=== PATIENT | male | born 1940 | race Caucasian/White ===

== ENCOUNTER 2023-04-24 08:00 | Outpatient (CLI) | payer MEDICARE, BC ==
[2023-04-24 16:39] LABS: BASOPHILS % (AUTO) 0.7 % (0.0-2.0); EOSINOPHILS % (AUTO) 1.6 % (0.0-6.0); HEMATOCRIT 36 % (39-51); HEMOGLOBIN 11.5 g/dL (13.5-17.5); LYMPHOCYTES # (AUTO) 1.3 K/uL (0.8-4.8); LYMPHOCYTES % (AUTO) 29.5 % (20.0-44.0); MEAN CORPUSCULAR HGB CONC 32 g/dl (31.0-36.0); MEAN CORPUSCULAR VOLUME 102 fL (80-96); MONOCYTES # (AUTO) 0.7 K/uL (0.1-1.30); MONOCYTES % (AUTO) 15.8 % (2.0-12.0); NEUTROPHILS # (AUTO) 2.3 K/uL (1.8-8.9); NEUTROPHILS % (AUTO) 52.4 % (43.0-81.0); RED BLOOD CELL COUNT(AUTO) 3.56 MIL/uL (4.5-6.0); WHITE BLOOD COUNT (AUTO) 4.3 K/uL (4.3-11.0)
[2023-04-24 17:15] LABS: CALCIUM, SERUM 8.7 mg/dL (8.5-10.1); CREATININE 1.2 mg/dL (0.6-1.3)
[2023-04-24 17:19] LABS: BILIRUBIN,URINE NEGATIVE (NEGATIVE); COLOR,URINE YELLOW (YELLOW); LEUKOCYTE ESTERASE ,URINE NEGATIVE (NEGATIVE); NITRITE, URINE NEGATIVE (NEGATIVE); PROTEIN,URINE NEGATIVE (NEGATIVE); UGLUCOSE NEGATIVE (NEGATIVE); UROBILINOGEN,URINE 0.2 EU/dL (0.2)
[2023-04-24 17:29] LABS: PLATELET COUNT (AUTO) 31 K/uL (150-450)
[2023-04-24 18:07] LABS: EOSINOPHILS % (MANUAL) 1 % (0-4); LYMPHOCYTES % (MANUAL) 35 % (16-48); MONOCYTES % (MANUAL) 13 % (0-11.0); NEUTROPHILS % (MANUAL) 51 (42-76)
== END 2023-04-24 23:59 | disposition home or self-care (01) ==
LOC: LAB 08:00
PROVIDERS: ATTEND Internal Medicine Pulmonary Disease
DX: Z01.818 Encounter for other preprocedural examination (principal); I49.3 Ventricular premature depolarization
CPT/HCPCS: 36415; 71045-TC; 80048-TC; 85025-TC; 85730-TC

== ENCOUNTER 2023-04-26 09:18 | Outpatient (CLI) | payer MEDICARE, BC ==
[2023-04-26 11:50] LABS: BASOPHILS % (AUTO) 0.6 % (0.0-2.0); EOSINOPHILS % (AUTO) 1.2 % (0.0-6.0); HEMATOCRIT 34 % (39-51); HEMOGLOBIN 11.1 g/dL (13.5-17.5); LYMPHOCYTES # (AUTO) 1.1 K/uL (0.8-4.8); LYMPHOCYTES % (AUTO) 23.5 % (20.0-44.0); MEAN CORPUSCULAR HGB CONC 33 g/dl (31.0-36.0); MEAN CORPUSCULAR VOLUME 98 fL (80-96); MONOCYTES # (AUTO) 0.6 K/uL (0.1-1.30); MONOCYTES % (AUTO) 13.7 % (2.0-12.0); NEUTROPHILS # (AUTO) 2.9 K/uL (1.8-8.9); PLATELET COUNT (AUTO) 157 K/uL (150-450); RED BLOOD CELL COUNT(AUTO) 3.49 MIL/uL (4.5-6.0); WHITE BLOOD COUNT (AUTO) 4.7 K/uL (4.3-11.0)
[2023-05-04] MEDS ORDERED: HYDR-3972 PO (09:35)
== END 2023-04-26 23:59 | disposition home or self-care (01) ==
LOC: LAB 09:18
PROVIDERS: ATTEND Dentist Oral and Maxillofacial Surgery
DX: Z01.812 Encounter for preprocedural laboratory examination (principal); I10 Essential (primary) hypertension
CPT/HCPCS: 36415; 85025-TC

== ENCOUNTER 2023-04-30 11:18 | Outpatient (CLI) | payer MEDICARE, BC | END 2023-04-30 23:59 | disposition home or self-care (01) | LOC: LAB 11:18 | PROVIDERS: ATTEND Internal Medicine Pulmonary Disease | DX: Z75.3 Unavailability and inaccessibility of health-care facilities (principal) ==

== ENCOUNTER 2023-05-03 08:25 | Inpatient (IN) | payer MEDICARE, BC ==
[~2023-05-03] VITALS: Ht 177.8 cm; Wt 124.7 kg
[2023-05-03] VITALS (11 sets, daily range): BP systolic 140–158; BP diastolic 65–95
--- NOTE | 2023-05-03 09:58 | NUR ---
MS DAY SURGERY NOTES RECEIVED THIS 83 YO PATIENT AT THE MS UNIT AT AROUND 0835 ACCOMPANIED BY ADMITTING STAFF, AOX4, AMBULATORY, USES CANE, STABLE GAIT, BREATHING STABLE ON ROOM AIR WITHOUT ANY DIFFICULTY, PATIENT IS HAVING RESECT NEOPLASMS AND OSTEOMYELITIS, MAXILLARY AND MANDIBLE BILATERAL OPEN REDUCTION INTERNAL FIXATION, PATHOLOGICAL FRACTURES WITH AUTOLOGOUS BONE, BILATERAL SINUSOTOMY BY DR GASTON LEAL. PATIENT SIGNED ALL SURGICAL CONSENTS BY HIMSELF, NPO SINCE YESTERDAY 05/02/2023, DENIED PAIN NOR DISCOMFORT AT THE MOMENT. ORIENTED TO STAFF AND ROOM. SKIN IS INTACT. IV ACCESS STARTED ON RIGHT HAND G#22, SALINE LOCKED, PATENT AND FLUSHING WELL. PRE-OP CHECKLIST DONE, BELONGINGS ARE WITH THE PATIENT. VITAL SIGNS TAKEN AND RECORDED. SAFETY MEASURES IN PLACE: BED IN LOWEST AND LOCKED POSITION, CALL LIGHT AND TRAY TABLE WITHIN EASY REACH. PATIENT WAS PICKED UP BY 2 OR STAFF AT AROUND 0955. WILL CONTINUE TO MONITOR.
[2023-05-03] MEDS ORDERED: LIDOCAINE 2%-EPI 1:100,000 30 ML VIAL ONE (10:17)
[2023-05-03] MEDS ORDERED: VANCOMYCIN 1 GM VIAL ONE (10:18)
[2023-05-03] MEDS ORDERED: DEXAMETHASONE SOD PHOSPHATE 10 MG/ML VIAL ONE (10:18)
[2023-05-03] MEDS ORDERED: MIDAZOLAM HCL 2 MG/2ML VIAL ONE (10:23)
[2023-05-03] MEDS ORDERED: FENTANYL PF 100MCG/2ML AMPUL ONE (10:23)
[2023-05-03] MEDS ORDERED: SEVOFLURANE 250 ML BOTTLE IH ONE (10:23)
[2023-05-03] MEDS ORDERED: ROCURONIUM BROMIDE 50 MG/5 ML ONE (10:24)
[2023-05-03] MEDS ORDERED: Magnesium 1 GM/2 ML VIAL ONE (10:24)
[2023-05-03] MEDS ORDERED: OXYMETAZOLINE HCL NASAL SPRAY 30 ML BOTTLE NS ONE (10:24)
[2023-05-03] MEDS ORDERED: FAMOTIDINE/PF INJ 20 MG/2 ML VIAL IV ONE (10:24)
--- NOTE | 2023-05-03 10:27 | NUR ---
RN NOTES - PACU NURSE SUE CAME BACK FOR PT'S CPAP MACHINE
--- NOTE | 2023-05-03 13:35 | NUR ---
RN NOTES PATIENT IS BACK FROM OR TO HIS ROOM AT 1328, VITAL SIGNS TAKEN AND RECORDED, STABLE.
--- NOTE | 2023-05-03 14:00 | NUR ---
MS RN NOTES PATIENT CAME BACK FROM PACU VIA HIS OWN BED ACCOMPANIED BY 2 NURSES, PATIENT IS AOX4, CALM, COOPERATIVE, DENIED PAIN NOR DISCOMFORT, S/P RESECTION OR NEOPLASMS, OSTEOMYELITIS, BONE CYSTS, MAXILLA, MANDIBLE, BILATERAL ORIF, MAXILLA AND MANDIBLE AUTOLOGOUS BONE GRAFTING BY DR LEAL. INSPECTED THE ORAL CAVITY AND NO SIGNS OF BLEEDING NOTED. PATIENT IS BREATHING WITHOUT DIFFICULTY ON ROOM AIR. IV ACCESS ON RIGHT HAND G#22 WITH NS RUNNING. RECEIVED POST-OP ORDERS AND ENTERED, MRSA COLLECTED, ICE CHIPS PROVIDED, PATIENT TOLERATED, SEEN BY ADMITTING HOSPITALIST. PATIENT IS ORIENTED TO ROOM AND STAFF, SAFETY MEASURES IN PLACE: BED IN LOWEST AND LOCKED POSITION, CALL LIGHT AND TRAY TABLE WITHIN EASY REACH, SIDE RAILS UP 2X. WILL CONTINUE TO MONITOR.
[2023-05-03] MEDS ORDERED: IV NS 0.9% 1,000 ML IV PRN (14:30)
[2023-05-03] MEDS ORDERED: HYDROMORPHONE 1 MG/1 ML DISP.SYRIN IV PRN (15:30)
[2023-05-03] MEDS ORDERED: MAG HYDROX/AL HYDROX/SIMETH 30 ML UDC PO PRN (15:30)
[2023-05-03] MEDS ORDERED: ZOLPIDEM TARTRATE 5 MG TABLET PO PRN (15:30)
[2023-05-03] MEDS ORDERED: Z GUARD REMEDY 4 OZ OINT TP PRN (15:30)
[2023-05-03] MEDS ORDERED: ACETAMINOPHEN 325 MG TABLET PO PRN ×3 (15:30→17:00)
[2023-05-03] MEDS ORDERED: ONDANSETRON HCL/PF 4 MG/2 ML VIAL IVP PRN (15:30)
[2023-05-03] MEDS ORDERED: MAGNESIUM HYDROXIDE 30 ML UDC PO PRN (15:30)
[2023-05-03] MEDS ORDERED: ONDANSETRON HCL/PF 4 MG/2 ML VIAL IV PRN (15:30)
[2023-05-03] MEDS ORDERED: FINA5TAB11 PO (15:34)
[2023-05-03] MEDS ORDERED: MULT-447 PO (15:34)
[2023-05-03] MEDS ORDERED: DOCU-141 PO (15:34)
[2023-05-03] MEDS ORDERED: DOXA8TAB79 PO (15:34)
[2023-05-03] MEDS ORDERED: GABA-532 PO (15:34)
[2023-05-03] MEDS ORDERED: ASPI-1420 PO (15:34)
[2023-05-03] MEDS ORDERED: OMEP40CA21 PO (15:34)
[2023-05-03] MEDS ORDERED: LABE100T5 PO (15:34)
[2023-05-03] MEDS ORDERED: HYDR-4076 PO (15:34)
[2023-05-03] MEDS ORDERED: LOSA1TAB39 PO (15:34)
[2023-05-03] MEDS ORDERED: ACET-868 PO (15:34)
[2023-05-03] MEDS ORDERED: CHOL100043 PO (15:34)
[2023-05-03] MEDS ORDERED: ATOR10TA PO (15:34)
[2023-05-03] MEDS ORDERED: AMLO-212 PO (15:34)
[2023-05-03] MEDS: LABETALOL HCL (100MG) 100 MG TABLET PO SCH (17:38)
[2023-05-03] MEDS: GABAPENTIN 100 MG CAPSULE PO SCH (17:38)
[2023-05-03] MEDS: hydrALAZINE HCL 25 MG TABLET PO SCH (17:38)
--- NOTE | 2023-05-03 17:48 | NUR ---
RN NOTES- PATIENT HAS CPAP FROM HOME THAT HE USES AT NIGHT, CALLED RESPIRATORY TO HELP PATIENT SET IT UP.
--- NOTE | 2023-05-03 18:50 | NUR ---
MS RN CLOSING NOTES PT RESTING IN BED, AOX4, ON ROOM AIR BREATHING WITHOUT DIFFICULTY. DENIES PAIN NOR DISCOMFORT, NO BLEEDING NOTED. PATIENT WAS ABLE TO TOLERATE CLEAR LIQUIDS, NO N/V NOTED. IV ACCESS ON RIGHT HAND G#22 WITH STANDBY NS IVF, PATIENT ASKED TO DISCONNECT FOR NOW, WILL ENDORSE TO SUPERVISOR LEAD REFINERY NURSE. ALL NEEDS MET, ALL DUE MEDS GIVEN. SAFETY MEASURES MAINTAINED: BED IN LOWEST AND LOCKED POSITION, CALL LIGHT AND TRAY TABLE WITHIN EASY REACH, SIDE RAILS UP 2X. WILL ENDORSE TO SUPERVISOR LEAD REFINERY NURSE.
--- NOTE | 2023-05-03 19:39 | NUR ---
MS RN OPENING NOTE RECEIVED PT AWAKE IN BED. A/O X4 AND ABLE TO MAKE NEEDS KNOWN. PT STABLE ON ROOM AIR. NO SOB OR S/S OF RESPIRATORY DISTRESS. BREATHING EVEN AND UNLABORED. IV ACCESS R HAND 22G, INTACT AND PATENT, IVF ON STANDBY FOR NOW PER PT REQUEST. NO COMPLAINTS OF PAIN OR DISCOMFORT AT THIS TIME. SAFETY PRECAUTIONS IN PLACE. BED IN LOWEST LOCKED POSITION, HOB ELEVATED, SIDE RAILS UP X2, AND CALL LIGHT AND TABLE WITHIN REACH. ALL NEEDS MET AT THIS TIME.
[2023-05-04 05:53] LABS: BASOPHILS % (AUTO) 0.2 % (0.0-2.0); EOSINOPHILS % (AUTO) 0.1 % (0.0-6.0); HEMATOCRIT 32 % (39-51); HEMOGLOBIN 10.4 g/dL (13.5-17.5); LYMPHOCYTES # (AUTO) 0.5 K/uL (0.8-4.8); LYMPHOCYTES % (AUTO) 5.9 % (20.0-44.0); MEAN CORPUSCULAR HGB CONC 32 g/dl (31.0-36.0); MEAN CORPUSCULAR VOLUME 101 fL (80-96); MONOCYTES # (AUTO) 0.4 K/uL (0.1-1.30); NEUTROPHILS # (AUTO) 7.5 K/uL (1.8-8.9); NEUTROPHILS % (AUTO) 88.8 % (43.0-81.0); PLATELET COUNT (AUTO) 85 K/uL (150-450); RED BLOOD CELL COUNT(AUTO) 3.22 MIL/uL (4.5-6.0); WHITE BLOOD COUNT (AUTO) 8.4 K/uL (4.3-11.0)
[2023-05-04 06:13] LABS: CALCIUM, SERUM 8.7 mg/dL (8.5-10.1); CREATININE 1.1 mg/dL (0.6-1.3); MAGNESIUM 2.3 mg/dL (1.8-2.4); PHOSPHORUS 3.3 mg/dL (2.5-4.9); POTASSIUM 4.5 mmol/L (3.5-5.1)
--- NOTE | 2023-05-04 06:38 | NUR ---
MS RN CLOSING NOTE PT AWAKE IN BED. A/O X4 AND ABLE TO MAKE NEEDS KNOWN. PT STABLE ON ROOM AIR. NO SOB OR S/S OF RESPIRATORY DISTRESS. BREATHING EVEN AND UNLABORED. IV ACCESS R HAND 22G, INTACT AND PATENT, RUNNING NS @ 30 ML/HR. NO COMPLAINTS OF PAIN OR DISCOMFORT AT THIS TIME. NO S/S OF BLEEDING ALL SHIFT. ALL DUE MEDS GIVEN ORDERED. SAFETY PRECAUTIONS IN PLACE AT ALL TIMES. BED IN LOWEST LOCKED POSITION, HOB ELEVATED, SIDE RAILS UP X2, AND CALL LIGHT AND TABLE WITHIN REACH. ALL NEEDS MET AT THIS TIME AND WILL ENDORSE TO ONCOMING NURSE FOR EITAN.
[2023-05-04 07:00] VITALS: BP 156/67
[2023-05-04] MEDS ORDERED: PANTOPRAZOLE 40 MG TABLET.DR PO SCH (07:30)
--- NOTE | 2023-05-04 07:45 | NUR ---
MS RN OPENING NOTE RECEIVED PT AWAKE IN BED. A/O X4 AND ABLE TO MAKE NEEDS KNOWN. PT STABLE ON ROOM AIR. NO SOB OR S/S OF RESPIRATORY DISTRESS. WITH NONLABORED BREATHING. IV ACCESS R HAND 22G, INTACT AND PATENT, IVF ON STANDBY FOR NOW PER PT REQUEST. NO COMPLAINTS OF PAIN OR DISCOMFORT AT THIS TIME. SAFETY PRECAUTIONS MAINTAINED, WITH BED IN LOWEST LOCKED POSITION, HOB ELEVATED, SIDE RAILS UP X2, CALL LIGHT AND TABLE WITHIN EASY REACH. ALL NEEDS MET AT THIS TIME. WILL CONTINUE TO MONITOR AND ASSIST.
[2023-05-04] MEDS: GABAPENTIN 100 MG CAPSULE PO SCH (08:47)
[2023-05-04] MEDS: hydrALAZINE HCL 25 MG TABLET PO SCH (08:48)
[2023-05-04] MEDS ORDERED: AMLODIPINE BESYLATE 5 MG TABLET PO SCH (09:00)
[2023-05-04] MEDS ORDERED: FINASTERIDE (5 MG) 5 MG TABLET PO SCH (09:00)
[2023-05-04] MEDS ORDERED: Medication Not On Formulary EA (Losartan/Hydrochlorothiazide (Losartan-Hctz 100-25 Mg Ta PO SCH (09:00)
[2023-05-04] MEDS ORDERED: LOSARTAN POTASSIUM 50 MG TABLET PO SCH (09:00)
[2023-05-04] MEDS ORDERED: ASPIRIN EC 81 MG TABLET.DR PO SCH (09:00)
[2023-05-04] MEDS ORDERED: CHOLECALCIFEROL 1,000 UNIT TABLET (VIT D3) PO SCH (09:00)
[2023-05-04] MEDS ORDERED: DOCUSATE SODIUM 100 MG CAPSULE PO SCH (09:00)
[2023-05-04] MEDS ORDERED: ATORVASTATIN 10 MG TABLET PO SCH (09:00)
[2023-05-04] MEDS ORDERED: DOXAZOSIN MESYLATE (4 MG) 4 MG TABLET PO SCH (09:00)
[2023-05-04] MEDS ORDERED: HYDROCHLOROTHIAZIDE 25 MG TABLET PO SCH (09:00)
[2023-05-04] MEDS ORDERED: MULTIVIT W/MINERALS 1 TAB TABLET PO SCH (09:00)
[2023-05-04 09:08] LABS: LYMPHOCYTES % (MANUAL) 6 % (16-48); MONOCYTES % (MANUAL) 4 % (0-11.0); NEUTROPHILS % (MANUAL) 90 (42-76)
[2023-05-04] MEDS ORDERED: HYDR-3972 PO (09:35)
[2023-05-04 10:12] VITALS: BP 156/67
[2023-05-04] MEDS: LABETALOL HCL (100MG) 100 MG TABLET PO SCH (10:12)
--- NOTE | 2023-05-04 11:07 | NUR ---
RN NOTES: RECEIVED VERBAL ORDER FROM DR MEZA ADVANCE DIET TO SOFT. ORDER NOTED AND CARRIED OUT.
--- NOTE | 2023-05-04 12:10 | NUR ---
MS SOCIAL CONTACT WORKER NOTES RECEIVED ORDER FOR DISCHARGE GIVEN BY DR. MEZA, SEEN AND EXAMINED AT BEDSIDE, [facility]. PATIENT IS A/O X4, ABLE TO MAKE NEEDS KNOWN. STABLE ON ROOM AIR, NO SOB OR S/S OF DISTRESS NOTED. DISCHARGE INSTRUCTIONS GIVEN, PATIENT WAS INSTRUCTED TO FOLLOW UP WITH DR. LEAL NEXT WEEK. PATIENT VERBALIZED UNDERSTANDING. ALL BELONGINGS ACCOUNTED FOR, BELONGING SHEET SIGNED. PATIENT DENIES ANY PAIN OR DISCOMFORT AT THIS TIME. IV ACCESS REMOVED. EXITCARE FOLDER GIVEN TO PATIENT . PATIENT LEFT IN STABLE CONDITION WITH FRIEND VIA PRIVATE CAR.
== END 2023-05-04 14:27 | disposition home or self-care (01) | DRG 141 ==
LOC: EDBD → DS 08:25 → MED 08:26
PROVIDERS: ADMIT Dentist Oral and Maxillofacial Surgery; ATTEND Nurse Practitioner Acute Care
PROC: 0NSR0ZZ Reposition Maxilla, Open Approach (ICD-10-PCS; principal; 2023-05-03)
PROC: 09UQ07Z Supplement Right Maxillary Sinus with Autologous Tissue Substitute, Open Approach (ICD-10-PCS; 2023-05-03)
PROC: 09UR07Z Supplement Left Maxillary Sinus with Autologous Tissue Substitute, Open Approach (ICD-10-PCS; 2023-05-03)
PROC: 09BQ0ZX Excision of Right Maxillary Sinus, Open Approach, Diagnostic (ICD-10-PCS; 2023-05-03)
PROC: 0NBR0ZZ Excision of Maxilla, Open Approach (ICD-10-PCS; 2023-05-03)
PROC: 0NSV0ZZ Reposition Left Mandible, Open Approach (ICD-10-PCS; 2023-05-03)
PROC: 0NST0ZZ Reposition Right Mandible, Open Approach (ICD-10-PCS; 2023-05-03)
PROC: 0NUV07Z Supplement Left Mandible with Autologous Tissue Substitute, Open Approach (ICD-10-PCS; 2023-05-03)
PROC: 0NUT07Z Supplement Right Mandible with Autologous Tissue Substitute, Open Approach (ICD-10-PCS; 2023-05-03)
PROC: 0NBV0ZX Excision of Left Mandible, Open Approach, Diagnostic (ICD-10-PCS; 2023-05-03)
PROC: 0NBT0ZX Excision of Right Mandible, Open Approach, Diagnostic (ICD-10-PCS; 2023-05-03)
DX: M27.2 Inflammatory conditions of jaws (principal); M84.58XA Pathological fracture in neoplastic disease, other specified site, initial encounter for fracture; D49.2 Neoplasm of unspecified behavior of bone, soft tissue, and skin; J32.0 Chronic maxillary sinusitis; L92.9 Granulomatous disorder of the skin and subcutaneous tissue, unspecified; M27.40 Unspecified cyst of jaw; D16.4 Benign neoplasm of bones of skull and face; D16.5 Benign neoplasm of lower jaw bone; E78.5 Hyperlipidemia, unspecified; G47.33 Obstructive sleep apnea (adult) (pediatric); N40.0 Benign prostatic hyperplasia without lower urinary tract symptoms; I10 Essential (primary) hypertension; D64.9 Anemia, unspecified; D69.6 Thrombocytopenia, unspecified; E66.9 Obesity, unspecified; Z68.36 Body mass index [BMI] 36.0-36.9, adult; Z79.899 Other long term (current) drug therapy; Z79.82 Long term (current) use of aspirin
CPT/HCPCS: 36415; 80048-TC; 83735-TC; 84100-TC; 85025-TC; 87081-TC; A4223; G0378; J1100; J2250; J3010; J3370; J3475; J3490; J7030

== ENCOUNTER 2023-12-20 05:59 | Inpatient (IN) | payer MEDICARE, BC ==
[~2023-12-20] VITALS: Ht 177.8 cm; Wt 124.3 kg
[~2023-12-20 05:59] MED LIST: ACET-868 PO; AMLO-212 PO; ASPI-1420 PO; ATOR10TA PO; CHOL100043 PO; DOCU-141 PO; DOXA8TAB79 PO; FINA5TAB11 PO; GABA-532 PO; HYDR-3972 PO; HYDR-4076 PO; LABE100T5 PO; LOSA1TAB39 PO; MULT-447 PO; OMEP40CA21 PO
[2023-12-20] MEDS ORDERED: LIDOCAINE 2%-EPI 1:100,000 30 ML VIAL ONE (07:00)
[2023-12-20] MEDS ORDERED: dexaMETHasone SOD PHOSPHATE 2 ML ONE (07:00)
[2023-12-20] MEDS ORDERED: VANCOMYCIN 1 GM VIAL ONE (07:00)
[2023-12-20] MEDS ORDERED: ANESTHESIA TRAY IN PYXIS 1 EA TRAY MC ONE (07:03)
[2023-12-20] MEDS ORDERED: KETAMINE HCL (500MG/10ML) 50 MG/ML VIAL ONE (07:11)
[2023-12-20] MEDS ORDERED: FENTANYL PF 100MCG/2ML AMPUL ONE (07:11)
[2023-12-20] MEDS ORDERED: FAMOTIDINE/PF INJ 20 MG/2 ML VIAL IV ONE (07:11)
[2023-12-20] MEDS ORDERED: ROCURONIUM BROMIDE 50 MG/5 ML ONE (07:11)
[2023-12-20] MEDS ORDERED: OXYMETAZOLINE HCL NASAL SPRAY 30 ML BOTTLE NS ONE (07:11)
[2023-12-20] MEDS ORDERED: MIDAZOLAM HCL 2 MG/2ML VIAL ONE (07:12)
[2023-12-20] MEDS ORDERED: LANOLIN/MIN OIL/PETROLAT,WHT 3.5 GM TUBE ONE (07:17)
[2023-12-20 07:46] VITALS: BP 126/73; TEMP 98.1; O2SAT 97
[2023-12-20] MEDS ORDERED: IV NS 0.9% 1,000 ML IV PRN (10:30)
[2023-12-20] MEDS ORDERED: ONDANSETRON HCL/PF 4 MG/2 ML VIAL IV PRN (10:30)
[2023-12-20] MEDS ORDERED: ACETAMINOPHEN 325 MG TABLET PO PRN (10:30)
[2023-12-20] MEDS ORDERED: HYDROMORPHONE 1 MG/1 ML DISP.SYRIN IV PRN (10:30)
[2023-12-20 16:00] VITALS: BP 154/73; TEMP 98.4; O2SAT 94
[2023-12-20] MEDS: LABETALOL HCL (100MG) 100 MG TABLET PO SCH (17:31)
[2023-12-20] MEDS: GABAPENTIN 100 MG CAPSULE PO SCH (17:37)
[2023-12-20] MEDS: hydrALAZINE HCL 25 MG TABLET PO SCH (17:38)
[2023-12-20] MEDS: VANCOMYCIN 1 GM in IV D5W 250ml IV SCH (19:56)
[2023-12-20 20:00] VITALS: BP 140/72; TEMP 98.3; O2SAT 93
[2023-12-21] MEDS ORDERED: PANTOPRAZOLE 40 MG TABLET.DR PO SCH (07:30)
[2023-12-21 08:00] VITALS: BP 155/76; TEMP 97.9; O2SAT 94
[2023-12-21] MEDS: VANCOMYCIN 1 GM in IV D5W 250ml IV SCH (08:00)
[2023-12-21] MEDS ORDERED: ASPIRIN EC 81 MG TABLET.DR PO SCH (09:00)
[2023-12-21] MEDS ORDERED: MULTIVIT W/MINERALS 1 TAB TABLET PO SCH (09:00)
[2023-12-21] MEDS ORDERED: LOSARTAN/HCTZ 50-12.5MG/ 1 EA TABLET PO SCH (09:00)
[2023-12-21] MEDS ORDERED: AMLODIPINE BESYLATE 5 MG TABLET PO SCH (09:00)
[2023-12-21] MEDS ORDERED: FINASTERIDE (5 MG) 5 MG TABLET PO SCH (09:00)
[2023-12-21] MEDS ORDERED: ATORVASTATIN 10 MG TABLET PO SCH (09:00)
[2023-12-21] MEDS ORDERED: DOCUSATE SODIUM 100 MG CAPSULE PO SCH (09:00)
[2023-12-21] MEDS ORDERED: DOXAZOSIN MESYLATE (4 MG) 4 MG TABLET PO SCH (09:00)
[2023-12-21] MEDS: GABAPENTIN 100 MG CAPSULE PO SCH (09:13)
[2023-12-21] MEDS: LABETALOL HCL (100MG) 100 MG TABLET PO SCH (09:13)
[2023-12-21] MEDS: hydrALAZINE HCL 25 MG TABLET PO SCH (09:14)
[2023-12-21 09:15] VITALS: BP 155/76
[2023-12-25] MEDS ORDERED: CHOLECALCIFEROL 1,000 UNIT TABLET (VIT D3) PO SCH (09:00)
== END 2023-12-21 10:30 | disposition home or self-care (01) | DRG 908 ==
LOC: DS 05:59 → MED 06:00
PROVIDERS: ADMIT Internal Medicine; ATTEND Internal Medicine
PROC: 0NBV0ZX Excision of Left Mandible, Open Approach, Diagnostic (ICD-10-PCS; principal; 2023-12-21)
PROC: 0NUT07Z Supplement Right Mandible with Autologous Tissue Substitute, Open Approach (ICD-10-PCS; 2023-12-21)
PROC: 0NSR04Z Reposition Maxilla with Internal Fixation Device, Open Approach (ICD-10-PCS; 2023-12-21)
PROC: 0NST04Z Reposition Right Mandible with Internal Fixation Device, Open Approach (ICD-10-PCS; 2023-12-21)
PROC: 0WB30ZX Excision of Oral Cavity and Throat, Open Approach, Diagnostic (ICD-10-PCS; 2023-12-21)
PROC: 0NUV0JZ Supplement Left Mandible with Synthetic Substitute, Open Approach (ICD-10-PCS; 2023-12-21)
PROC: 0NUR07Z Supplement Maxilla with Autologous Tissue Substitute, Open Approach (ICD-10-PCS; 2023-12-21)
PROC: 0NBT0ZX Excision of Right Mandible, Open Approach, Diagnostic (ICD-10-PCS; 2023-12-21)
PROC: 0NBR0ZX Excision of Maxilla, Open Approach, Diagnostic (ICD-10-PCS; 2023-12-21)
DX: T86.831 Bone graft failure (principal); S02.40CK Maxillary fracture, right side, subsequent encounter for fracture with nonunion; S02.609K Fracture of mandible, unspecified, subsequent encounter for fracture with nonunion; D69.6 Thrombocytopenia, unspecified; G47.33 Obstructive sleep apnea (adult) (pediatric); I10 Essential (primary) hypertension; Y83.2 Surgical operation with anastomosis, bypass or graft as the cause of abnormal reaction of the patient, or of later complication, without mention of misadventure at the time of the procedure; Y92.009 Unspecified place in unspecified non-institutional (private) residence as the place of occurrence of the external cause; E78.5 Hyperlipidemia, unspecified; D64.9 Anemia, unspecified; I08.0 Rheumatic disorders of both mitral and aortic valves; I25.10 Atherosclerotic heart disease of native coronary artery without angina pectoris; M27.2 Inflammatory conditions of jaws; N40.0 Benign prostatic hyperplasia without lower urinary tract symptoms; Z90.49 Acquired absence of other specified parts of digestive tract; E66.9 Obesity, unspecified; Z68.39 Body mass index [BMI] 39.0-39.9, adult; Z79.899 Other long term (current) drug therapy; Z79.82 Long term (current) use of aspirin; X58.XXXD Exposure to other specified factors, subsequent encounter; J32.9 Chronic sinusitis, unspecified; D16.5 Benign neoplasm of lower jaw bone
CPT/HCPCS: 82962-TC; A4223; C1713; G0378; J1100; J2250; J2405; J2704; J2765; J3010; J3370; J3490; J7030; J7060

== ENCOUNTER 2024-06-23 07:17 | Inpatient (IN) | payer MEDICARE, BC ==
[~2024-06-23] VITALS: Ht 177.8 cm; Wt 108.0 kg
[2024-06-23] VITALS (20 sets, daily range): BP systolic 105–141; BP diastolic 48–90; TEMP 98.2–99.5; O2SAT 92–97
[~2024-06-23 07:17] MED LIST changes: -ACET-868 PO; -HYDR-3972 PO
[2024-06-23] MEDS ORDERED: ACETAMINOPHEN ES 500 MG TABLET ONE (07:27)
[2024-06-23] MEDS: ACETAMINOPHEN ES 500 MG TABLET PO ONE (07:28)
[2024-06-23] MEDS: IV NS 0.9% 1,000 ML BAG IV ONE (07:35)
[2024-06-23 07:57] LABS: INR 1.24 (0.91-1.10); PARTIAL THROMBOPLASTIN TIME 21.3 SEC (24.3-34.3)
[2024-06-23] MEDS: CEFEPIME 1 GM in IV D5W 50 ML IV ONE (08:00)
[2024-06-23 08:01] LABS: ALANINE AMINOTRANSFERASE 35 U/L (12-78); ALBUMIN 1.8 g/dL (3.4-5.0); ALKALINE PHOSPHATASE 56 U/L (46-116); ASPARTATE AMINOTRANSFERASE 13 U/L (15-37); BILIRUBIN,DIRECT 0.3 mg/dL (0.0-0.2); BILIRUBIN,TOTAL 0.6 mg/dL (0.2-1.0); CALCIUM, SERUM 7.3 mg/dL (8.5-10.1); CARBON DIOXIDE 22 mmol/L (21-32); CHLORIDE 102 mmol/L (98-107); CREATININE 1.6 mg/dL (0.6-1.3); GLUCOSE 105 mg/dL (74-106); POTASSIUM 4.5 mmol/L (3.5-5.1); SODIUM SERUM 135 mmol/L (136-145); TOTAL PROTEIN, SERUM 6.9 g/dL (6.4-8.2); UREA NITROGEN, BLOOD 28 mg/dL (7-18)
[2024-06-23 08:03] LABS: LACTIC ACID 1.3 mmol/L (0.4-2.0)
[2024-06-23 08:39] LABS: BASOPHILS % (AUTO) 1.1 % (0.0-2.0); HEMATOCRIT 23 % (39-51); HEMOGLOBIN 7.9 g/dL (13.5-17.5); LYMPHOCYTES # (AUTO) 0.4 K/uL (0.8-4.8); LYMPHOCYTES % (AUTO) 47.8 % (20.0-44.0); MEAN CORPUSCULAR HEMOGLOBIN 32 PG (26.0-33.0); MEAN CORPUSCULAR HGB CONC 34 g/dl (31.0-36.0); MEAN CORPUSCULAR VOLUME 95 fL (80-96); MONOCYTES # (AUTO) 0.1 K/uL (0.1-1.30); MONOCYTES % (AUTO) 8.6 % (2.0-12.0); NEUTROPHILS # (AUTO) 0.3 K/uL (1.8-8.9); NEUTROPHILS % (AUTO) 41.5 % (43.0-81.0); RED BLOOD CELL COUNT(AUTO) 2.46 MIL/uL (4.5-6.0); RED CELL DISTRIBUTION WIDTH 15.4 % (11.5-15.0)
[2024-06-23] MEDS: VANCOMYCIN 1 GM in IV D5W 250 ML IV ONE (08:40)
[2024-06-23 08:44] LABS: WHITE BLOOD COUNT (AUTO) 0.8 K/uL (4.3-11.0)
[2024-06-23 08:45] LABS: PLATELET COUNT (AUTO) 48 K/uL (150-450)
[2024-06-23] MEDS ORDERED: hydrALAZINE HCL IV 20 MG VIAL IV PRN (10:00)
[2024-06-23] MEDS ORDERED: ONDANSETRON HCL/PF 4 MG/2 ML VIAL IVP PRN (10:00)
[2024-06-23] MEDS: ENOXAPARIN SODIUM 40 MG/0.4 ML DISP.SYRIN SQ SCH ×2 (10:00→17:30)
[2024-06-23] MEDS ORDERED: ACETAMINOPHEN 325 MG TABLET PO PRN (10:00)
[2024-06-23] MEDS ORDERED: MORPHINE SULFATE INJ 2 MG/ML DISP.SYRIN IV PRN (10:00)
[2024-06-23] MEDS ORDERED: DEXA4TAB PO (10:20)
[2024-06-23] MEDS ORDERED: ACET-73 PO (10:20)
[2024-06-23] MEDS ORDERED: MAGN400T8 PO (10:20)
[2024-06-23] MEDS ORDERED: CYAN-51 PO (10:20)
[2024-06-23] MEDS ORDERED: CALC200T42 PO (10:20)
[2024-06-23] MEDS ORDERED: LENA5CAP PO (10:20)
[2024-06-23] MEDS: VANCOMYCIN 750 MG in IV D5W 250 ML IV ONE (11:00)
[2024-06-23 11:57] LABS: ANISOCYTOSIS 1+; BAND % (MANUAL) 2 % (0.0-5.0); BASOPHILS % (MANUAL) 0 % (0.0-2.0); EOSINOPHILS % (MANUAL) 2 % (0-4); LYMPHOCYTES % (MANUAL) 42 % (16-48); MONOCYTES % (MANUAL) 6 % (0-11.0); NEUTROPHILS % (MANUAL) 48 (42-76); PLATELET ESTIMATE DECREASED
[2024-06-23] MEDS ORDERED: CEFEPIME 2 GM in IV D5W 100 ML IV SCH (12:00)
[2024-06-23] MEDS: GABAPENTIN 100 MG CAPSULE PO SCH (13:08)
[2024-06-23] MEDS: hydrALAZINE HCL 25 MG TABLET PO SCH (13:08)
[2024-06-23] MEDS: LOSARTAN/HCTZ 50-12.5MG/ 1 EA TABLET PO SCH (13:09)
[2024-06-23] MEDS: TBO-FILGRASTIM 480 MCG/0.8 ML ML SQ SCH (15:52)
[2024-06-23 17:02] LABS: C-REACTIVE PROTEIN 10.51 mg/dL (0.0-0.30); THYROID STIMULATING HORMONE 0.49 uIU/mL (0.358-3.74)
[2024-06-23 17:20] LABS: RHEUMATOID FACTOR SCREEN NEGATIVE (NEGATIVE)
[2024-06-23] MEDS: DOCUSATE SODIUM LIQ 100 MG/10 ML UDC PO SCH (17:28)
[2024-06-23] MEDS: LABETALOL HCL (100MG) 100 MG TABLET PO SCH (17:29)
[2024-06-23] MEDS: CEFEPIME 2 GM in IV D5W 100 ML IV SCH (20:57)
[2024-06-24] VITALS (24 sets, daily range): BP systolic 105–129; BP diastolic 46–63; TEMP 97.8–99.3; O2SAT 94–98
[2024-06-24 05:00] LABS: BASOPHILS % (AUTO) 0.2 % (0.0-2.0); EOSINOPHILS % (AUTO) 0.5 % (0.0-6.0); HEMATOCRIT 21 % (39-51); HEMOGLOBIN 7.1 g/dL (13.5-17.5); LYMPHOCYTES # (AUTO) 0.6 K/uL (0.8-4.8); LYMPHOCYTES % (AUTO) 37.4 % (20.0-44.0); MEAN CORPUSCULAR HEMOGLOBIN 33 PG (26.0-33.0); MEAN CORPUSCULAR HGB CONC 34 g/dl (31.0-36.0); MEAN CORPUSCULAR VOLUME 96 fL (80-96); MONOCYTES # (AUTO) 0.1 K/uL (0.1-1.30); MONOCYTES % (AUTO) 6.5 % (2.0-12.0); NEUTROPHILS # (AUTO) 0.8 K/uL (1.8-8.9); NEUTROPHILS % (AUTO) 55.4 % (43.0-81.0); RED BLOOD CELL COUNT(AUTO) 2.17 MIL/uL (4.5-6.0); RED CELL DISTRIBUTION WIDTH 15.5 % (11.5-15.0)
[2024-06-24 05:07] LABS: PLATELET COUNT (AUTO) 44 K/uL (150-450); WHITE BLOOD COUNT (AUTO) 1.5 K/uL (4.3-11.0)
[2024-06-24 05:28] LABS: D-DIMER 4.86 mg/L(FEU (0.17-0.50); INR 1.3 (0.91-1.10); PARTIAL THROMBOPLASTIN TIME 42.9 SEC (24.3-34.3); PROTHROMBIN TIME 13.5 SECS (9.2-11.1)
[2024-06-24 05:40] LABS: ALANINE AMINOTRANSFERASE 33 U/L (12-78); ALKALINE PHOSPHATASE 41 U/L (46-116); ASPARTATE AMINOTRANSFERASE 22 U/L (15-37); BILIRUBIN,TOTAL 0.7 mg/dL (0.2-1.0); CALCIUM, SERUM 6.5 mg/dL (8.5-10.1); CARBON DIOXIDE 20 mmol/L (21-32); CHLORIDE 105 mmol/L (98-107); CREATININE 1.3 mg/dL (0.6-1.3); GLUCOSE 88 mg/dL (74-106); MAGNESIUM 1.9 mg/dL (1.8-2.4); PHOSPHORUS 2.8 mg/dL (2.5-4.9); POTASSIUM 3.7 mmol/L (3.5-5.1); SODIUM SERUM 135 mmol/L (136-145); TOTAL PROTEIN, SERUM 5.6 g/dL (6.4-8.2); UREA NITROGEN, BLOOD 25 mg/dL (7-18)
[2024-06-24 05:57] LABS: BAND % (MANUAL) 2 % (0.0-5.0); BASOPHILS % (MANUAL) 0 % (0.0-2.0); EOSINOPHILS % (MANUAL) 0 % (0-4); LYMPHOCYTES % (MANUAL) 31 % (16-48); MONOCYTES % (MANUAL) 10 % (0-11.0); NEUTROPHILS % (MANUAL) 57 (42-76); PLATELET ESTIMATE DECREASED
[2024-06-24 05:58] LABS: ANISOCYTOSIS 1+
[2024-06-24 06:04] LABS: ALBUMIN 1.3 g/dL (3.4-5.0)
[2024-06-24] MEDS: FINASTERIDE (5 MG) 5 MG TABLET PO SCH (08:51)
[2024-06-24] MEDS: ASPIRIN EC 81 MG TABLET.DR PO SCH (08:51)
[2024-06-24] MEDS: POLYETHYLENE GLYCOL 3350 17 GM POWD.PACK PO SCH (08:51)
[2024-06-24] MEDS: ATORVASTATIN 10 MG TABLET PO SCH (08:51)
[2024-06-24] MEDS: AMLODIPINE BESYLATE 5 MG TABLET PO SCH (08:52)
[2024-06-24] MEDS: DOXAZOSIN MESYLATE (4 MG) 4 MG TABLET PO SCH (08:53)
[2024-06-24] MEDS ORDERED: ENOXAPARIN SODIUM 40 MG/0.4 ML DISP.SYRIN SQ SCH (09:00)
[2024-06-24 09:09] LABS: FOLIC ACID 14.5 ng/mL (>3.0)
[2024-06-24] MEDS: ENOXAPARIN SODIUM 120 MG/0.8 ML DISP.SYRIN SQ SCH (10:27)
[2024-06-24] MEDS: VANCOMYCIN 1 GM in IV D5W 250 ML IV SCH (11:40)
[2024-06-24] MEDS: PROSOURCE / PROSTAT (PYXIS) 30 ML UDC PO SCH (12:32)
[2024-06-24 13:07] LABS: *ANA ANTI-CENTROMERE B AB <0.2 AI (0.0-0.9); *ANA ANTI-DNA(DS) AB, QN <1 IU/mL (0-9); *ANA ANTI-JO-1 <0.2 AI (0.0-0.9); *ANA ANTICHROMATIN ANTIBODY <0.2 AI (0.0-0.9); *ANA RNP ANTIBODIES <0.2 AI (0.0-0.9); *ANA SJOGREN'S ANTI-SS-A <0.2 AI (0.0-0.9); *ANA SJOGREN'S ANTI-SS-B <0.2 AI (0.0-0.9); *ANAANTI-SCLERODERMA-70 AB <0.2 AI (0.0-0.9); *ANASMITH AB <0.2 AI (0.0-0.9); HEPATITIS B SURFACE AB Non Reactive (.)
[2024-06-24] MEDS: ENOXAPARIN SODIUM 100 MG/ML DISP.SYRIN SQ SCH (21:54)
[2024-06-25] VITALS (16 sets, daily range): BP systolic 106–129; BP diastolic 48–79; TEMP 98.1–98.8; O2SAT 90–98
[2024-06-25 04:36] LABS: BASOPHILS % (AUTO) 0.3 % (0.0-2.0); EOSINOPHILS % (AUTO) 1.4 % (0.0-6.0); HEMATOCRIT 21 % (39-51); HEMOGLOBIN 7.4 g/dL (13.5-17.5); LYMPHOCYTES # (AUTO) 0.4 K/uL (0.8-4.8); LYMPHOCYTES % (AUTO) 24.5 % (20.0-44.0); MEAN CORPUSCULAR HEMOGLOBIN 33 PG (26.0-33.0); MEAN CORPUSCULAR HGB CONC 35 g/dl (31.0-36.0); MEAN CORPUSCULAR VOLUME 96 fL (80-96); MONOCYTES # (AUTO) 0.1 K/uL (0.1-1.30); MONOCYTES % (AUTO) 6.3 % (2.0-12.0); NEUTROPHILS # (AUTO) 1.1 K/uL (1.8-8.9); NEUTROPHILS % (AUTO) 67.5 % (43.0-81.0); RED BLOOD CELL COUNT(AUTO) 2.22 MIL/uL (4.5-6.0); RED CELL DISTRIBUTION WIDTH 15.7 % (11.5-15.0)
[2024-06-25 04:55] LABS: CREATINE KINASE, TOTAL 124 U/L (39-308)
[2024-06-25 05:01] LABS: ALANINE AMINOTRANSFERASE 37 U/L (12-78); ALKALINE PHOSPHATASE 49 U/L (46-116); ASPARTATE AMINOTRANSFERASE 19 U/L (15-37); BILIRUBIN,TOTAL 0.6 mg/dL (0.2-1.0); CALCIUM, SERUM 6.5 mg/dL (8.5-10.1); CARBON DIOXIDE 18 mmol/L (21-32); CHLORIDE 104 mmol/L (98-107); CREATININE 1.6 mg/dL (0.6-1.3); GLUCOSE 93 mg/dL (74-106); PHOSPHORUS 2.4 mg/dL (2.5-4.9); POTASSIUM 3.5 mmol/L (3.5-5.1); SODIUM SERUM 135 mmol/L (136-145); TOTAL PROTEIN, SERUM 5.9 g/dL (6.4-8.2); UREA NITROGEN, BLOOD 27 mg/dL (7-18)
[2024-06-25 05:25] LABS: PLATELET COUNT (AUTO) 51 K/uL (150-450)
[2024-06-25 05:26] LABS: ALBUMIN 1.3 g/dL (3.4-5.0); WHITE BLOOD COUNT (AUTO) 1.6 K/uL (4.3-11.0)
[2024-06-25 05:33] LABS: D-DIMER 3.17 mg/L(FEU (0.17-0.50); INR 1.2 (0.91-1.10); PROTHROMBIN TIME 12.6 SECS (9.2-11.1)
[2024-06-25 06:36] LABS: ANISOCYTOSIS 1+; BASOPHILS % (MANUAL) 0 % (0.0-2.0); EOSINOPHILS % (MANUAL) 1 % (0-4); LYMPHOCYTES % (MANUAL) 21 % (16-48); MONOCYTES % (MANUAL) 8 % (0-11.0); NEUTROPHILS % (MANUAL) 70 (42-76); PLATELET ESTIMATE DECREASED
[2024-06-25] MEDS: ALBUMIN 25% 25 GM in PREMIX 1 EA IV SCH (08:22)
[2024-06-25] MEDS: VANCOMYCIN HCL 1.25 GM in IV D5W 250 ML IV SCH (15:54)
[2024-06-25] MEDS: K PHOS NEUTRAL 250 MG TABLET PO ONE (17:10)
[2024-06-25] MEDS: APIXABAN 5 MG TABLET PO SCH (17:41)
[2024-06-26] VITALS: BP 115/57; TEMP 98; O2SAT 95
[2024-06-26 04:00] VITALS: BP 138/53; TEMP 98.3; O2SAT 95
[2024-06-26 07:55] LABS: BASOPHILS % (AUTO) 0.5 % (0.0-2.0); EOSINOPHILS % (AUTO) 1.9 % (0.0-6.0); LYMPHOCYTES # (AUTO) 0.5 K/uL (0.8-4.8); LYMPHOCYTES % (AUTO) 27.7 % (20.0-44.0); MEAN CORPUSCULAR HEMOGLOBIN 33 PG (26.0-33.0); MEAN CORPUSCULAR HGB CONC 34 g/dl (31.0-36.0); MEAN CORPUSCULAR VOLUME 96 fL (80-96); MONOCYTES # (AUTO) 0.2 K/uL (0.1-1.30); MONOCYTES % (AUTO) 10.7 % (2.0-12.0); NEUTROPHILS # (AUTO) 1.1 K/uL (1.8-8.9); NEUTROPHILS % (AUTO) 59.2 % (43.0-81.0); PLATELET COUNT (AUTO) 58 K/uL (150-450); RED BLOOD CELL COUNT(AUTO) 2.06 MIL/uL (4.5-6.0)
[2024-06-26 07:59] LABS: HEMOGLOBIN 6.7 g/dL (13.5-17.5); WHITE BLOOD COUNT (AUTO) 1.9 K/uL (4.3-11.0)
[2024-06-26 08:00] VITALS: BP 116/57; TEMP 98.4; O2SAT 95
[2024-06-26 08:00] LABS: HEMATOCRIT 20 % (39-51)
[2024-06-26 08:03] LABS: D-DIMER 2.3 mg/L(FEU (0.17-0.50); INR 1.19 (0.91-1.10); PROTHROMBIN TIME 12.5 SECS (9.2-11.1)
[2024-06-26 08:07] LABS: PTH, INTACT 151 pg/mL (15-65)
[2024-06-26 08:37] LABS: CALCIUM, SERUM 6.4 mg/dL (8.5-10.1); CARBON DIOXIDE 20 mmol/L (21-32); CHLORIDE 105 mmol/L (98-107); CREATININE 2.2 mg/dL (0.6-1.3); GLUCOSE 93 mg/dL (74-106); PHOSPHORUS 2.5 mg/dL (2.5-4.9); POTASSIUM 3.7 mmol/L (3.5-5.1); SODIUM SERUM 139 mmol/L (136-145); UREA NITROGEN, BLOOD 37 mg/dL (7-18)
[2024-06-26 10:10] LABS: *SPE A/G RATIO 0.5 (0.7-1.7); *SPE ALBUMIN 1.9 g/dL (2.9-4.4); *SPE ALPHA-1-GLOBULIN 0.3 g/dL (0.0-0.4); *SPE ALPHA-2-GLOBULIN 1.2 g/dL (0.4-1.0); *SPE BETA GLOBULIN 1.8 g/dL (0.7-1.3); *SPE GLOBULIN, TOTAL 3.5 g/dL (2.2-3.9); *SPE M-SPIKE 1.5 g/dL (Not Observed); *SPE PROTEIN TOTAL 5.4 g/dL (6.0-8.5); *SPEGAMMA GLOBULIN 0.1 g/dL (0.4-1.8)
[2024-06-26 11:59] LABS: ANISOCYTOSIS 1+; BASOPHILS % (MANUAL) 0 % (0.0-2.0); EOSINOPHILS % (MANUAL) 3 % (0-4); LYMPHOCYTES % (MANUAL) 27 % (16-48); MONOCYTES % (MANUAL) 8 % (0-11.0); NEUTROPHILS % (MANUAL) 62 (42-76); PLATELET ESTIMATE DECREASED
[2024-06-26 12:00] VITALS: BP 122/55; TEMP 97.9; O2SAT 97
[2024-06-26 12:41] LABS: APPEARANCE,URINE SLIGHTLY CLOUDY (CLEAR); BILIRUBIN,URINE NEGATIVE (NEGATIVE); BLOOD, URINE NEGATIVE Ery/uL (NEGATIVE); COLOR,URINE DARK YELLOW (YELLOW); KETONES,URINE NEGATIVE (NEGATIVE); LEUKOCYTE ESTERASE ,URINE NEGATIVE (NEGATIVE); NITRITE, URINE NEGATIVE (NEGATIVE); PROTEIN,URINE 1+ mg/dl (NEGATIVE); UGLUCOSE NEGATIVE (NEGATIVE); UROBILINOGEN,URINE 0.2 EU/dL (0.2)
[2024-06-26 12:46] LABS: ADD URINE CULTURE YES; BACTERIA,URINE Rare /HPF (None Seen); EOSINOPHIL,URINE None Seen; SQUAMOUS EPITHELIAL CELL,UR Moderate /HPF (None Seen)
[2024-06-26 13:04] LABS: CREATININE, URINE 95.2 MG/DL (30.0-125.0); URINE TOTAL PROTEIN 169.6 mg/dL (0-11.9)
[2024-06-26 16:00] VITALS: BP 122/63; TEMP 97.9; O2SAT 98
[2024-06-26 16:09] VITALS: BP 122/63
[2024-06-26] MEDS: ALBUMIN 25% 25 GM in PREMIX 1 EA IV SCH (18:33)
[2024-06-26] MEDS ORDERED: CEFEPIME 1 GM in IV D5W 50 ML IV SCH (20:00)
== END 2024-06-26 19:57 | disposition short-term general hospital (02) | DRG 871 ==
LOC: ER 07:22 → ICU 10:17 → TELE1 06-25 11:11
PROVIDERS: ADMIT Internal Medicine; ATTEND Internal Medicine
DX: A41.9 Sepsis, unspecified organism (principal); E43 Unspecified severe protein-calorie malnutrition; J96.01 Acute respiratory failure with hypoxia; J69.0 Pneumonitis due to inhalation of food and vomit; N17.9 Acute kidney failure, unspecified; C90.00 Multiple myeloma not having achieved remission; I82.401 Acute embolism and thrombosis of unspecified deep veins of right lower extremity; D61.818 Other pancytopenia; D84.9 Immunodeficiency, unspecified; E87.1 Hypo-osmolality and hyponatremia; N18.30 Chronic kidney disease, stage 3 unspecified; I12.9 Hypertensive chronic kidney disease with stage 1 through stage 4 chronic kidney disease, or unspecified chronic kidney disease; Z79.899 Other long term (current) drug therapy; Z92.21 Personal history of antineoplastic chemotherapy; N40.0 Benign prostatic hyperplasia without lower urinary tract symptoms; M89.8X9 Other specified disorders of bone, unspecified site; Z79.82 Long term (current) use of aspirin; D70.1 Agranulocytosis secondary to cancer chemotherapy; T45.1X5A Adverse effect of antineoplastic and immunosuppressive drugs, initial encounter; Y92.009 Unspecified place in unspecified non-institutional (private) residence as the place of occurrence of the external cause; R65.20 Severe sepsis without septic shock; E78.5 Hyperlipidemia, unspecified; E66.01 Morbid (severe) obesity due to excess calories; G47.33 Obstructive sleep apnea (adult) (pediatric); Z68.34 Body mass index [BMI] 34.0-34.9, adult; E88.09 Other disorders of plasma-protein metabolism, not elsewhere classified; K21.9 Gastro-esophageal reflux disease without esophagitis; Z66 Do not resuscitate; Z79.01 Long term (current) use of anticoagulants
CPT/HCPCS: 36415; 71045-TC; 71250-TC; 76700-TC; 80048-TC; 80053-TC; 80076-TC; 81001; 82550-TC; 82570-TC; 82607-TC; 82728-TC; 83540-TC; 83605-TC; 83735-TC; 83970; 84100-TC; 84155; 84165; 84300-TC; 84443-TC; 84484-TC; 85025-TC; 85385-TC; 85396; 85730-TC; 86140-TC; 86225; 86235; 86431-TC; 86706; 86803; 86850-TC; 87040-TC; 87340; 93970-TC; 94799-TC; A4216; A4223; G0378; J0692; J1447; J1650; J3370; J3371; J7030; J7050; J7060; P9047